=== PATIENT | female | born 1930 | race Caucasian/White ===

== ENCOUNTER 2016-12-17 22:47 | Inpatient (IN) | payer MEDICARE, OTHER, SELFPAY ==
[~2016-12-17] VITALS: Ht 154.9 cm; Wt 77.4 kg
[~2016-12-17 22:47] MED LIST: CARV12.530 PO; CLIN-78 PO; LEVO75TA4 PO; LISI20TA PO; SIMV20TA6 PO; [UNRECOGNIZED DRUG - CODE]; [UNRECOGNIZED DRUG - CODE] PO
[2016-12-17] MEDS ORDERED: BUME1TAB30 PO (22:52)
[2016-12-17] MEDS ORDERED: 0.9% SODIUM CHLORIDE 5 ML NEB SOLUTION NEB ONE (22:56)
[2016-12-17] MEDS ORDERED: ALBUTEROL SULFATE 2.5 MG/0.5 ML NEB SOLUTION NEB ONE (23:00)
[2016-12-17] MEDS ORDERED: IPRATROPIUM BROMIDE 0.5 MG/2.5 ML NEB SOLUTION NEB ONE (23:00)
[2016-12-17 23:12] LABS: ABG A-A DIFF O2 413.7 mmHg (10-20.0); ABG BASE EXCESS -1.1 mmol/L (-2.0-3.0); ABG HCO3 23.6 mmol/L (22.0-26.0); ABG OXYHEMOGLOBIN 97.6 % (94.0-100.0); ABG PCO2 41 mmHg (35-45); ABG PH 7.388 (7.35-7.450); TEMPERATURE, FAHRENHEIT, BG 97.5 FAHREN (96.0-98.6)
[2016-12-17 23:13] LABS: ALLEN TEST, BLOOD GAS Positive; IPAP, BG 18 cm H2O
[2016-12-17 23:19] LABS: BASOPHILS # (AUTO) 0.07 K/uL (0.00-0.20); BASOPHILS % (AUTO) 0.7 % (0.0-2.0); EOSINOPHILS # (AUTO) 0.22 K/uL (0.00-0.70); HEMATOCRIT 37.8 % (36-46); HEMOGLOBIN 12.4 g/dL (12.0-16.0); LYMPHOCYTES # (AUTO) 2.6 K/uL (1.0-4.8); LYMPHOCYTES % (AUTO) 22.8 % (22.0-44.0); MEAN CORPUSCULAR HEMOGLOBIN 30.2 pg (26.0-34.0); MEAN CORPUSCULAR HGB CONC 32.8 G/dL (31.0-37.0); MEAN CORPUSCULAR VOLUME 92 fL (80-100); MONOCYTES # (AUTO) 0.5 K/uL (0.1-1.0); MONOCYTES % (AUTO) 4.8 % (2.0-9.0); NEUTROPHILS # (AUTO) 7.8 K/uL (1.8-7.7); NEUTROPHILS % (AUTO) 69.8 % (40.0-70.0); PLATELET COUNT (AUTO) 206 K/uL (150-450); RED BLOOD CELL COUNT(AUTO) 4.11 MIL/uL (4.00-5.20); RED CELL DISTRIBUTION WIDTH 14.6 % (11.5-14.5); WHITE BLOOD COUNT (AUTO) 11.2 K/uL (4.5-11.0)
[2016-12-17 23:29] LABS: ANION GAP 8 mmol/L (8-16); CALCIUM, TOTAL 8.9 mg/dL (8.8-10.5); CARBON DIOXIDE 28 mmol/L (22-29); CHLORIDE 102 mmol/L (98-107); CREATININE 1.67 mg/dL (0.60-1.30); GLOMERULAR FILTR. RATE CALC 29 mL/min (>60); POTASSIUM 4.1 mmol/L (3.5-5.1); SODIUM SERUM 138 mmol/L (136-145); UREA NITROGEN, BLOOD 35 mg/dL (7-18)
[2016-12-17] MEDS ORDERED: ALBUTEROL SULFATE 2.5 MG/0.5 ML NEB SOLUTION NEB PRN (23:30)
[2016-12-17] MEDS ORDERED: ACETAMINOPHEN 325 MG TABLET PO PRN (23:30)
[2016-12-17] MEDS ORDERED: ZOLPIDEM TARTRATE 5 MG TABLET PO PRN (23:30)
[2016-12-17] MEDS ORDERED: ONDANSETRON HCL 4 MG/2 ML VIAL IVP PRN (23:30)
[2016-12-17] MEDS ORDERED: OxyCODONE HCL/ACETAMINOPHEN 5-325 MG TABLET PO PRN (23:30)
[2016-12-17 23:35] LABS: ALANINE AMINOTRANSFERASE 18 U/L (12-78); ALBUMIN 3.4 g/dL (3.4-5.0); ASPARTATE AMINOTRANSFERASE 21 U/L (15-37); BILIRUBIN,TOTAL 0.2 mg/dL (0.1-1.0); CREATINE KINASE, TOTAL 43 U/L (26-192); TOTAL PROTEIN, SERUM 7.7 g/dL (6.4-8.2)
[2016-12-17 23:59] LABS: B-TYPE NATRIURETIC PEPTIDE 1020 pg/mL (0-100)
[2016-12-18] VITALS (7 sets, daily range): BP systolic 101–130; BP diastolic 43–71
[2016-12-18] MEDS ORDERED: FUROSEMIDE 40 MG/4 ML VIAL IVP ONE (00:15)
[2016-12-18] MEDS ORDERED: FUROSEMIDE 40 MG/4 ML VIAL ONE (00:17)
[2016-12-18 00:19] LABS: THYROID STIMULATING HORMONE 7.67 uIU/mL (0.36-3.74)
[2016-12-18] MEDS ORDERED: 0.9% SODIUM CHLORIDE 5 ML NEB SOLUTION NEB ONE ×4 (02:23→18:43)
[2016-12-18] MEDS: ALBUTEROL SULFATE 2.5 MG/0.5 ML NEB SOLUTION NEB SCH ×4 (02:25→20:48)
[2016-12-18] MEDS: HEPARIN SODIUM,PORCINE 5,000 UNITS/ML VIAL SQ SCH ×3 (02:41→15:37)
[2016-12-18 06:21] LABS: GLUCOSE COMMENT 1 Doctor Notified; GLUCOSE,POINT OF CARE 235 MG/DL (70-110)
[2016-12-18] MEDS ORDERED: PANTOPRAZOLE SODIUM 40 MG DR TABLET PO SCH (09:00)
[2016-12-18] MEDS ORDERED: ASPI-1093 PO (12:11)
[2016-12-18] MEDS ORDERED: CLOP75TA32 PO (12:11)
[2016-12-18] MEDS ORDERED: ISOS30TA6 PO (12:11)
[2016-12-18] MEDS ORDERED: ONDANSETRON HCL 4 MG/2 ML VIAL IVP PRN (16:15)
[2016-12-18] MEDS ORDERED: MAGNESIUM HYDROXIDE SUSPENSION 30 ML UDCUP PO PRN (16:15)
[2016-12-18] MEDS ORDERED: MORPHINE SULFATE 2 MG/ML SYRINGE IVP PRN (16:15)
[2016-12-18] MEDS ORDERED: BISACODYL 10 MG RECTAL RECTAL SUPPOSITORY PR PRN (16:15)
[2016-12-18] MEDS ORDERED: HYDROCODONE/ACETAMINOPHEN 5-325 MG TABLET PO PRN (16:15)
[2016-12-18] MEDS ORDERED: ZOLPIDEM TARTRATE 5 MG TABLET PO PRN (16:15)
[2016-12-18] MEDS ORDERED: ACETAMINOPHEN 325 MG TABLET PO PRN (16:15)
[2016-12-18] MEDS ORDERED: HEPARIN SODIUM,PORCINE 5,000 UNITS/ML VIAL IVP ONE (18:15)
[2016-12-18] MEDS ORDERED: HEPARIN SODIUM,PORCINE 5,000 UNITS/ML VIAL IVP PRN (18:15)
[2016-12-18 18:56] LABS: PROTHROMBIN TIME 10.7 SEC (9.4-11.6)
[2016-12-18] MEDS: HEPARIN SODIUM 25000 UNITS/D5W 250 ML IV PRN (20:05)
[2016-12-18] MEDS: BUMETANIDE 0.25 MG/ML 4 ML VIAL IVP SCH (20:13)
[2016-12-18] MEDS: DOCUSATE SODIUM 100 MG CAPSULE PO SCH (20:13)
[2016-12-18] MEDS: SIMVASTATIN 20 MG TABLET PO SCH (20:13)
[2016-12-18] MEDS ORDERED: BUMETANIDE 0.25 MG/ML 4 ML VIAL IVP SCH (21:00)
[2016-12-19] MEDS ORDERED: HEPARIN SODIUM,PORCINE 5,000 UNITS/ML VIAL SQ SCH
[2016-12-19] MEDS ORDERED: 0.9% SODIUM CHLORIDE 5 ML NEB SOLUTION NEB ONE ×5 (03:02→20:41)
[2016-12-19] MEDS: ALBUTEROL SULFATE 2.5 MG/0.5 ML NEB SOLUTION NEB SCH ×4 (03:05→20:46)
[2016-12-19 04:17] VITALS: BP 115/63
[2016-12-19] MEDS: LEVOTHYROXINE SODIUM 75 MCG TABLET PO SCH (05:59)
[2016-12-19 07:25] LABS: BASOPHILS % (AUTO) 0.7 % (0.0-2.0); EOSINOPHILS % (AUTO) 2.7 % (1.0-6.0); HEMATOCRIT 32.5 % (36-46); HEMOGLOBIN 10.4 g/dL (12.0-16.0); LYMPHOCYTES # (AUTO) 1.7 K/uL (1.0-4.8); LYMPHOCYTES % (AUTO) 20.8 % (22.0-44.0); MEAN CORPUSCULAR HEMOGLOBIN 29.5 pg (26.0-34.0); MEAN CORPUSCULAR HGB CONC 31.9 G/dL (31.0-37.0); MEAN CORPUSCULAR VOLUME 93 fL (80-100); MONOCYTES # (AUTO) 0.7 K/uL (0.1-1.0); MONOCYTES % (AUTO) 8.7 % (2.0-9.0); NEUTROPHILS # (AUTO) 5.5 K/uL (1.8-7.7); NEUTROPHILS % (AUTO) 67.1 % (40.0-70.0); PLATELET COUNT (AUTO) 155 K/uL (150-450); RED BLOOD CELL COUNT(AUTO) 3.51 MIL/uL (4.00-5.20); RED CELL DISTRIBUTION WIDTH 14.8 % (11.5-14.5); WHITE BLOOD COUNT (AUTO) 8.1 K/uL (4.5-11.0)
[2016-12-19 07:45] VITALS: BP 122/64
[2016-12-19] MEDS: ASPIRIN 81 MG EC TABLET PO SCH (07:54)
[2016-12-19] MEDS: CLOPIDOGREL BISULFATE 75 MG TABLET PO SCH (07:54)
[2016-12-19] MEDS: DOCUSATE SODIUM 100 MG CAPSULE PO SCH ×2 (08:02→20:20)
[2016-12-19] MEDS: PANTOPRAZOLE SODIUM 40 MG DR TABLET PO SCH (08:02)
[2016-12-19] MEDS: ISOSORBIDE MONONITRATE 30 MG ER TABLET PO SCH (08:02)
[2016-12-19] MEDS: BUMETANIDE 0.25 MG/ML 4 ML VIAL IVP SCH (08:02)
[2016-12-19] MEDS: LISINOPRIL 20 MG TABLET PO SCH (08:03)
[2016-12-19 08:06] LABS: CREATINE KINASE MB 2.3 ng/mL (0-5); CREATINE KINASE, TOTAL 96 U/L (26-192)
[2016-12-19 11:22] VITALS: BP 105/59
[2016-12-19] MEDS: HEPARIN SODIUM 25000 UNITS/D5W 250 ML IV PRN ×2 (13:15→18:27)
[2016-12-19 15:49] VITALS: BP 107/58
[2016-12-19] MEDS: HEPARIN SODIUM,PORCINE 5,000 UNITS/ML VIAL IVP PRN (18:25)
[2016-12-19 19:51] VITALS: BP 100/52
[2016-12-19] MEDS: SIMVASTATIN 20 MG TABLET PO SCH (20:20)
[2016-12-19] MEDS: CARVEDILOL 3.125 MG TABLET PO SCH (21:00)
[2016-12-20] VITALS (7 sets, daily range): BP systolic 81–123; BP diastolic 47–75
[2016-12-20] MEDS: BUMETANIDE 0.25 MG/ML 4 ML VIAL IVP SCH ×3 (00:04→20:58)
[2016-12-20] MEDS ORDERED: 0.9% SODIUM CHLORIDE 10 ML SYRINGE IVP PRN (01:45)
[2016-12-20] MEDS ORDERED: 0.9% SODIUM CHLORIDE 5 ML NEB SOLUTION NEB ONE ×2 (01:54→18:46)
[2016-12-20] MEDS: ALBUTEROL SULFATE 2.5 MG/0.5 ML NEB SOLUTION NEB SCH ×4 (02:03→19:39)
[2016-12-20] MEDS: LEVOTHYROXINE SODIUM 75 MCG TABLET PO SCH (06:06)
[2016-12-20] MEDS: HEPARIN SODIUM 25000 UNITS/D5W 250 ML IV PRN ×3 (06:07→17:12)
[2016-12-20 06:18] LABS: BASOPHILS # (AUTO) 0.05 K/uL (0.00-0.20); BASOPHILS % (AUTO) 0.7 % (0.0-2.0); EOSINOPHILS # (AUTO) 0.25 K/uL (0.00-0.70); HEMATOCRIT 29.8 % (36-46); LYMPHOCYTES # (AUTO) 1.4 K/uL (1.0-4.8); LYMPHOCYTES % (AUTO) 19.1 % (22.0-44.0); MEAN CORPUSCULAR HEMOGLOBIN 30.5 pg (26.0-34.0); MEAN CORPUSCULAR HGB CONC 33.6 G/dL (31.0-37.0); MEAN CORPUSCULAR VOLUME 91 fL (80-100); MONOCYTES # (AUTO) 0.6 K/uL (0.1-1.0); MONOCYTES % (AUTO) 8.1 % (2.0-9.0); NEUTROPHILS # (AUTO) 4.9 K/uL (1.8-7.7); NEUTROPHILS % (AUTO) 68.6 % (40.0-70.0); PLATELET COUNT (AUTO) 155 K/uL (150-450); RED BLOOD CELL COUNT(AUTO) 3.29 MIL/uL (4.00-5.20); RED CELL DISTRIBUTION WIDTH 14.6 % (11.5-14.5); WHITE BLOOD COUNT (AUTO) 7.2 K/uL (4.5-11.0)
[2016-12-20 07:10] LABS: ALBUMIN 2.7 g/dL (3.4-5.0); BILIRUBIN,TOTAL 0.2 mg/dL (0.1-1.0); CALCIUM, TOTAL 8.7 mg/dL (8.8-10.5); CREATININE 1.54 mg/dL (0.60-1.30); POTASSIUM 4.2 mmol/L (3.5-5.1); TOTAL PROTEIN, SERUM 6.2 g/dL (6.4-8.2)
[2016-12-20] MEDS: ISOSORBIDE MONONITRATE 30 MG ER TABLET PO SCH (08:35)
[2016-12-20] MEDS: LISINOPRIL 20 MG TABLET PO SCH (08:35)
[2016-12-20] MEDS: PANTOPRAZOLE SODIUM 40 MG DR TABLET PO SCH (08:35)
[2016-12-20] MEDS: DOCUSATE SODIUM 100 MG CAPSULE PO SCH ×2 (08:35→20:58)
[2016-12-20] MEDS: CLOPIDOGREL BISULFATE 75 MG TABLET PO SCH (09:00)
[2016-12-20] MEDS: ASPIRIN 81 MG EC TABLET PO SCH (09:00)
[2016-12-20] MEDS: CARVEDILOL 3.125 MG TABLET PO SCH (09:00)
[2016-12-20] MEDS ORDERED: SODIUM CHLORIDE 0.9% 250 ML IV ONE (12:15)
[2016-12-20] MEDS ORDERED: DEXTROSE 50%-WATER 25 GM/50 ML SYRINGE IVP PRN (12:15)
[2016-12-20] MEDS ORDERED: HydrALAZINE HCL 20 MG/ML VIAL IVP PRN (12:45)
[2016-12-20] MEDS: INSULIN ASPART 100 UNITS/ML SQ PRN ×2 (17:44→21:12)
[2016-12-20 18:12] LABS: GLUCOSE,POINT OF CARE 437 MG/DL (70-110)
[2016-12-20 18:12] LABS: GLUCOSE COMMENT 1 Received Meds; GLUCOSE,POINT OF CARE 410 MG/DL (70-110)
[2016-12-20] MEDS: SIMVASTATIN 20 MG TABLET PO SCH (20:58)
[2016-12-21] MEDS ORDERED: 0.9% SODIUM CHLORIDE 5 ML NEB SOLUTION NEB ONE ×4 (02:33→20:17)
[2016-12-21] MEDS: ALBUTEROL SULFATE 2.5 MG/0.5 ML NEB SOLUTION NEB SCH ×4 (02:33→20:18)
[2016-12-21 03:59] VITALS: BP 107/58
[2016-12-21] MEDS: LEVOTHYROXINE SODIUM 75 MCG TABLET PO SCH (05:57)
[2016-12-21] MEDS: INSULIN ASPART 100 UNITS/ML SQ PRN ×4 (06:22→20:59)
[2016-12-21 08:21] VITALS: BP 105/48
[2016-12-21] MEDS: HEPARIN SODIUM,PORCINE 5,000 UNITS/ML VIAL IVP PRN ×2 (09:13→17:22)
[2016-12-21] MEDS: DOCUSATE SODIUM 100 MG CAPSULE PO SCH ×2 (09:15→20:57)
[2016-12-21] MEDS: PANTOPRAZOLE SODIUM 40 MG DR TABLET PO SCH (09:15)
[2016-12-21] MEDS: CLOPIDOGREL BISULFATE 75 MG TABLET PO SCH (09:15)
[2016-12-21] MEDS: ASPIRIN 81 MG EC TABLET PO SCH (09:15)
[2016-12-21] MEDS: BUMETANIDE 0.25 MG/ML 4 ML VIAL IVP SCH ×2 (09:32→20:57)
[2016-12-21] MEDS: ISOSORBIDE MONONITRATE 30 MG ER TABLET PO SCH (11:15)
[2016-12-21 11:42] VITALS: BP 106/57
[2016-12-21 15:18] VITALS: BP 102/64
[2016-12-21 15:51] LABS: GLUCOSE COMMENT 1 Received Meds; GLUCOSE,POINT OF CARE 252 MG/DL (70-110)
[2016-12-21 17:22] LABS: GLUCOSE COMMENT 1 Received Meds; GLUCOSE,POINT OF CARE 325 MG/DL (70-110)
[2016-12-21 20:21] VITALS: BP 98/57
[2016-12-21] MEDS: SIMVASTATIN 20 MG TABLET PO SCH (20:57)
[2016-12-21] MEDS: INSULIN DETEMIR 100 UNITS/ML SQ SCH (20:58)
[2016-12-22] VITALS (7 sets, daily range): BP systolic 93–114; BP diastolic 44–65
[2016-12-22] MEDS ORDERED: 0.9% SODIUM CHLORIDE 5 ML NEB SOLUTION NEB ONE ×4 (02:25→20:06)
[2016-12-22] MEDS: ALBUTEROL SULFATE 2.5 MG/0.5 ML NEB SOLUTION NEB SCH ×4 (02:28→20:10)
[2016-12-22] MEDS: LEVOTHYROXINE SODIUM 75 MCG TABLET PO SCH (06:16)
[2016-12-22] MEDS: INSULIN ASPART 100 UNITS/ML SQ PRN ×4 (06:18→21:28)
[2016-12-22] MEDS: INSULIN DETEMIR 100 UNITS/ML SQ SCH ×2 (08:15→21:26)
[2016-12-22] MEDS: BUMETANIDE 0.25 MG/ML 4 ML VIAL IVP SCH ×2 (09:00→21:00)
[2016-12-22] MEDS: ISOSORBIDE MONONITRATE 30 MG ER TABLET PO SCH (09:00)
[2016-12-22] MEDS: DOCUSATE SODIUM 100 MG CAPSULE PO SCH ×2 (10:04→21:28)
[2016-12-22] MEDS: PANTOPRAZOLE SODIUM 40 MG DR TABLET PO SCH (10:04)
[2016-12-22] MEDS: CLOPIDOGREL BISULFATE 75 MG TABLET PO SCH (10:04)
[2016-12-22] MEDS: ASPIRIN 81 MG EC TABLET PO SCH (10:05)
[2016-12-22 11:28] LABS: GLUCOSE,POINT OF CARE 238 MG/DL (70-110)
[2016-12-22] MEDS: SIMVASTATIN 20 MG TABLET PO SCH (21:28)
[2016-12-23] MEDS ORDERED: 0.9% SODIUM CHLORIDE 5 ML NEB SOLUTION NEB ONE ×4 (01:55→20:25)
[2016-12-23] MEDS: ALBUTEROL SULFATE 2.5 MG/0.5 ML NEB SOLUTION NEB SCH ×4 (01:56→20:00)
[2016-12-23 02:52] LABS: GLUCOSE COMMENT 1 Received Meds; GLUCOSE,POINT OF CARE 229 MG/DL (70-110)
[2016-12-23 04:20] VITALS: BP 105/45
[2016-12-23] MEDS: LEVOTHYROXINE SODIUM 75 MCG TABLET PO SCH (06:19)
[2016-12-23] MEDS: INSULIN ASPART 100 UNITS/ML SQ PRN ×2 (06:21→12:24)
[2016-12-23 07:06] VITALS: BP 111/66
[2016-12-23 07:27] LABS: GLUCOSE COMMENT 1 Received Meds; GLUCOSE,POINT OF CARE 168 MG/DL (70-110)
[2016-12-23 07:46] LABS: BASOPHILS % (AUTO) 0.8 % (0.0-2.0); EOSINOPHILS % (AUTO) 4.7 % (1.0-6.0); HEMATOCRIT 31.5 % (36-46); HEMOGLOBIN 10.4 g/dL (12.0-16.0); LYMPHOCYTES # (AUTO) 1.3 K/uL (1.0-4.8); LYMPHOCYTES % (AUTO) 18.6 % (22.0-44.0); MEAN CORPUSCULAR HEMOGLOBIN 30.2 pg (26.0-34.0); MEAN CORPUSCULAR VOLUME 92 fL (80-100); MONOCYTES # (AUTO) 0.7 K/uL (0.1-1.0); MONOCYTES % (AUTO) 9.9 % (2.0-9.0); NEUTROPHILS # (AUTO) 4.6 K/uL (1.8-7.7); PLATELET COUNT (AUTO) 171 K/uL (150-450); RED BLOOD CELL COUNT(AUTO) 3.44 MIL/uL (4.00-5.20); RED CELL DISTRIBUTION WIDTH 14.3 % (11.5-14.5)
[2016-12-23 08:04] LABS: ALBUMIN 2.8 g/dL (3.4-5.0); BILIRUBIN,TOTAL 0.3 mg/dL (0.1-1.0); CALCIUM, TOTAL 8.8 mg/dL (8.8-10.5); CREATININE 1.49 mg/dL (0.60-1.30); POTASSIUM 4.8 mmol/L (3.5-5.1); TOTAL PROTEIN, SERUM 6.5 g/dL (6.4-8.2)
[2016-12-23] MEDS: INSULIN DETEMIR 100 UNITS/ML SQ SCH (08:35)
[2016-12-23] MEDS: BUMETANIDE 0.25 MG/ML 4 ML VIAL IVP SCH (08:36)
[2016-12-23] MEDS: ISOSORBIDE MONONITRATE 30 MG ER TABLET PO SCH (08:37)
[2016-12-23] MEDS: CLOPIDOGREL BISULFATE 75 MG TABLET PO SCH (08:37)
[2016-12-23] MEDS: ASPIRIN 81 MG EC TABLET PO SCH (08:37)
[2016-12-23] MEDS: PANTOPRAZOLE SODIUM 40 MG DR TABLET PO SCH (08:37)
[2016-12-23] MEDS: DOCUSATE SODIUM 100 MG CAPSULE PO SCH (08:37)
[2016-12-23] MEDS ORDERED: SODIUM CHLORIDE 0.9% 2,000 ML IV ONE (09:16)
[2016-12-23 11:21] VITALS: BP 102/68
[2016-12-23 15:29] VITALS: BP 106/58
[2016-12-24 19:37] LABS: GLUCOSE,POINT OF CARE 323 MG/DL (70-110)
[2016-12-24 19:41] LABS: GLUCOSE,POINT OF CARE 239 MG/DL (70-110)
[2016-12-24 19:47] LABS: GLUCOSE COMMENT 1 Received Meds; GLUCOSE,POINT OF CARE 204 MG/DL (70-110)
[2016-12-24 19:47] LABS: GLUCOSE COMMENT 1 Received Meds; GLUCOSE,POINT OF CARE 174 MG/DL (70-110)
[2016-12-24 19:47] LABS: GLUCOSE COMMENT 1 Received Meds; GLUCOSE,POINT OF CARE 266 MG/DL (70-110)
[2016-12-27 17:37] LABS: GLUCOSE,POINT OF CARE 246 MG/DL (70-110)
== END 2016-12-23 17:40 | disposition short-term general hospital (02) | DRG 280 ==
LOC: EMS 22:48 → 5S 23:30
PROVIDERS: ADMIT Hospitalist; ATTEND Hospitalist
PROC: 5A09357 Assistance with Respiratory Ventilation, Less than 24 Consecutive Hours, Continuous Positive Airway Pressure (ICD-10-PCS; principal; 2016-12-17)
DX: I21.4 Non-ST elevation (NSTEMI) myocardial infarction (principal); J96.01 Acute respiratory failure with hypoxia; I50.33 Acute on chronic diastolic (congestive) heart failure; I13.0 Hypertensive heart and chronic kidney disease with heart failure and stage 1 through stage 4 chronic kidney disease, or unspecified chronic kidney disease; N18.4 Chronic kidney disease, stage 4 (severe); I69.351 Hemiplegia and hemiparesis following cerebral infarction affecting right dominant side; E03.9 Hypothyroidism, unspecified; D64.9 Anemia, unspecified; E66.9 Obesity, unspecified; I25.10 Atherosclerotic heart disease of native coronary artery without angina pectoris; E11.22 Type 2 diabetes mellitus with diabetic chronic kidney disease; E78.5 Hyperlipidemia, unspecified; I25.5 Ischemic cardiomyopathy; Z95.0 Presence of cardiac pacemaker; Z85.9 Personal history of malignant neoplasm, unspecified; Z79.899 Other long term (current) drug therapy; Z68.32 Body mass index [BMI] 32.0-32.9, adult; Z79.4 Long term (current) use of insulin; Z90.5 Acquired absence of kidney
CPT/HCPCS: 51702; 82271; 82805; 82962; 84443; 87040; 93005; 93306; 94640; 94660; 96374; 99291; J1644; J1940; J3490; J7030; J7050